=== PATIENT | female | born 1980 | race Caucasian/White ===

== ENCOUNTER 2019-06-26 11:25 | Emergency (ER) | payer MEDICAID ==
[2019-06-26] MEDS ORDERED: EPINEPHrine 1:10,000 1 MG/10 ML Syringe IM ONE (11:29)
[2019-06-26] MEDS ORDERED: EPINEPHrine 1 MG/1 ML Amp IM ONE (11:32)
[2019-06-26] MEDS ORDERED: methylPREDNISolone Sodium Succinate 40 MG/1 ML SDV ONE (11:36)
[2019-06-26] MEDS ORDERED: diphenhydrAMINE 50 MG/ML SDV ONE (11:36)
[2019-06-26] MEDS ORDERED: Sodium Chloride 0.9% 1,000 ML IV ONE (11:46)
[2019-06-26] MEDS ORDERED: diphenhydrAMINE 50 MG/ML SDV IVPUSH ONE (11:55)
[2019-06-26] MEDS ORDERED: methylPREDNISolone Sodium Succinate 40 MG/1 ML SDV IVPUSH ONE (11:55)
[2019-06-26 12:28] VITALS: BP 123/89; PULSE 103
--- NOTE | 2019-06-26 13:26 | EDM.PDOC ---
Scribed by Kendra Diaz 06/26/19 1325 for Yasmin Doyle NP ED HPI GENERAL MEDICAL PROBLEM - General Chief Complaint: Allergic Reaction Stated Complaint: STUNG BY BEE ALLERGIC Time Seen by Provider: 06/26/19 11:26 Source of Information: Reports: Patient, RN, RN Notes Reviewed History Limitations: Reports: No Limitations - History of Present Illness INITIAL COMMENTS - FREE TEXT/NARRATIVE: A 39-year-old female about half an hour ago was stung by a bee and used EpiPen. About 15 minutes ago; she still has feeling of shortness of breath and throat closing. She is anxious, shaky and dizzy. No rash, hives or itch. VSS Onset: Today Duration: Constant Location: Reports: Other (shortness of breath and throat closing) Quality: Reports: Ache Severity: Moderate Improves with: Reports: None Worsens with: Reports: None Associated Symptoms: Reports: No Other Symptoms - Related Data Allergies Allergy/AdvReac Type Severity Reaction Status Date / Time azithromycin [From Zithromax] Allergy Airway Verified 09/21/16 17:30 Tightness celecoxib [From Celebrex] Allergy Hives Verified 09/21/16 17:30 erythromycin base Allergy Cannot Verified 09/21/16 17:30 Remember meclizine Allergy Hives Verified 09/21/16 17:30 Home Meds: Home Meds FLUoxetine [PROzac] 20 mg PO DAILY 09/17/16 [History] Multivitamin [Multi-Vitamin Daily] 1 each PO DAILY 09/17/16 [History] Estrogens, Conjugated [Premarin] 1 tab PO DAILY 09/19/16 [History] Past Medical History HEENT History: Reports: Impaired Vision, Other (See Below) Other HEENT History: WEARS CORRECTIVE LENS - FREQUENTLY WEARS CONTACT LENS Cardiovascular History: Reports: Hypertension Respiratory History: Reports: SOB Gastrointestinal History: Reports: Chronic Diarrhea, Other (See Below) Other Gastrointestinal History: DARK STOOLS Genitourinary History: Reports: None LIFT SUPERVISOR History: Reports: , Other (See Below) Other LIFT SUPERVISOR History: cervical and uterine CA- hysterectomy; X3 PREGNANCIES 2 LIVING Musculoskeletal History: Reports: Arthritis Neurological History: Reports: None Psychiatric History: Reports: Anxiety, Depression, Suicide Attempt Endocrine/Metabolic History: Reports: Obesity/BMI 30+ Hematologic History: Reports: None Immunologic History: Reports: None Oncologic (Cancer) History: Reports: Cervix, Uterine Dermatologic History: Reports: None - Infectious Disease History Infectious Disease History: Reports: Chicken Pox - Past Surgical History Female Surgical History: Reports: Hysterectomy, Salpingo-Oophorectomy Musculoskeletal Surgical History: Reports: Other (See Below) Social & Family History - Family History Family Medical History: Noncontributory HEENT: Reports: Hearing Impairment, Impaired Vision Cardiac: Reports: CAD Respiratory: Reports: COPD GI: Reports: None : Reports: Renal Disease/Insufficiency OBGYN: Reports: None Musculoskeletal: Reports: Arthritis Neurological: Reports: None Psychiatric: Reports: None Endocrine/Metabolic: Reports: Diabetes, type II, Obesity/MBI 30+ Hematologic: Reports: None Immunologic: Reports: None Dermatologic: Reports: None Oncologic: Reports: Brain, Lung - Caffeine Use Caffeine Use: Reports: Soda Other Caffeine Use: RARELY - Living Situation & Occupation Occupation: Employed ED ROS ALLERGIC REACTION - Review of Systems Review Of Systems: ROS reveals no pertinent complaints other than HPI. Skin: Reports: No Symptoms ED EXAM GENERAL NO PERIP PULSE - Physical Exam Exam: See Below Exam Limited By: No Limitations General Appearance: Alert, WD/WN, No Apparent Distress Eye Exam: Bilateral Eye: Normal Inspection Ears: Other (small tiny left posterior ear bee sting with swelling at site. ) Nose: Normal Inspection, Normal Mucosa, No Blood Throat/Mouth: Normal Inspection, Normal Lips, Normal Teeth, Normal Gums, Normal Oropharynx, Normal Voice, No Airway Compromise Head: Atraumatic, Normocephalic Neck: Normal Inspection, Supple, Non-Tender, Full Range of Motion Respiratory/Chest: No Respiratory Distress, Lungs Clear, Normal Breath Sounds, No Accessory Muscle Use, Chest Non-Tender Cardiovascular: Normal Peripheral Pulses, Regular Rate, Rhythm, No Edema, No Gallop, No JVD, No Murmur, No Rub GI/Abdominal: Normal Bowel Sounds, Soft, Non-Tender, No Organomegaly, No Distention, No Abnormal Bruit, No Mass (Female) Exam: Deferred Rectal (Female) Exam: Deferred Back Exam: Normal Inspection, Full Range of Motion, NT Extremities: Normal Inspection, Normal Range of Motion, Non-Tender, Normal Capillary Refill, No Pedal Edema Neurological: Alert, Oriented, CN II-XII Intact, Normal Cognition, Normal Gait, Normal Reflexes, No Motor/Sensory Deficits Psychiatric: Normal Affect, Normal Mood Skin Exam: Warm, Dry, No Rash Course - Vital Signs Last Recorded V/S: Last Vital Signs Temp 36.8 C 06/26/19 11:45 Pulse 103 H 06/26/19 12:27 Resp 20 06/26/19 11:45 BP 123/89 06/26/19 12:27 Pulse Ox 97 06/26/19 12:27 - Orders/Labs/Meds Meds: Medications Discontinued Medications Generic Name Dose Route Start Last Admin Trade Name Ana PRN Reason Stop Dose Admin Diphenhydramine HCl Confirm 06/26/19 11:36 06/26/19 11:42 Benadryl Administered 06/26/19 11:37 50 mg Dose Administration 50 mg .ROUTE .STK-MED ONE Diphenhydramine HCl 50 mg 06/26/19 11:55 06/26/19 11:58 Benadryl IVPUSH 06/26/19 11:56 Not Given ONETIME ONE Epinephrine HCl 0.5 mg 06/26/19 11:29 06/26/19 11:47 Epinephrine 1:10,000 IM 06/26/19 11:30 Not Given ONETIME ONE Epinephrine HCl 0.5 mg 06/26/19 11:32 06/26/19 11:42 Adrenalin IM 06/26/19 11:33 0.5 mg ONETIME ONE Administration Sodium Chloride 1,000 mls @ 999 mls/hr 06/26/19 11:46 06/26/19 11:47 Normal Saline IV 06/26/19 12:46 999 mls/hr .BOLUS ONE Administration Methylprednisolone Sodium Succinate Confirm 06/26/19 11:36 06/26/19 11:42 Solu-Medrol Administered 06/26/19 11:37 80 mg Dose Administration 80 mg .ROUTE .STK-MED ONE Methylprednisolone Sodium Succinate 80 mg 06/26/19 11:55 06/26/19 11:59 Solu-Medrol IVPUSH 06/26/19 11:56 Not Given ONETIME ONE - Re-Assessments/Exams Free Text/Narrative Re-Assessment/Exam: 06/26/19 13:22 Improved 10 min after epi, Benadryl, solu-medrol was given. Observed 1.5 hours and remained stable. She felt comfortable with going home Departure - Departure Time of Disposition: 12:59 Disposition: Home, Self-Care 01 Condition: Good Clinical Impression: Bee sting-induced anaphylaxis Qualifiers: Encounter type: initial encounter Injury intent: accidental or unintentional Qualified Code(s): T63.441A - Toxic effect of venom of bees, accidental ( unintentional), initial encounter - Discharge Information *PRESCRIPTION DRUG MONITORING PROGRAM REVIEWED*: Not Applicable *COPY OF PRESCRIPTION DRUG MONITORING REPORT IN PATIENT [place]: Not Applicable Instructions: Anaphylactic Reaction, Adult, [id number] Referrals: PCP,None [Primary Care Provider] - Forms: ED Department Discharge Additional Instructions: Patient to return to ED if any return of symptoms with throat closure or shortness of breath. She is to take Benadryl 3 times a day for the next couple of days as well as Pepcid once in the morning and once at night. I have read and agree with the documentation that has been completed regarding this visit. By signing this record, I attest that the documentation was completed in my physical presence and is an accurate record of the encounter.
== END 2019-06-26 13:18 | disposition home or self-care (01) ==
LOC: DL.ED 11:25
DX: T63.441A Toxic effect of venom of bees, accidental (unintentional), initial encounter (principal); I10 Essential (primary) hypertension; F41.9 Anxiety disorder, unspecified; F32.9 Major depressive disorder, single episode, unspecified; E66.9 Obesity, unspecified; Z68.41 Body mass index [BMI] 40.0-44.9, adult; Z79.899 Other long term (current) drug therapy; Z88.1 Allergy status to other antibiotic agents; Z88.8 Allergy status to other drugs, medicaments and biological substances
CPT/HCPCS: 96361; 96372; 96374; 96375; 99284; J0171; J1200; J2920; J7030

== ENCOUNTER 2020-06-02 14:12 | Emergency (ER) | payer MEDICAID ==
[2020-06-02 14:24] VITALS: BP 130/76; PULSE 94
[2020-06-02 15:30] LABS: ANION GAP 11.6 mEq/L (7-13); CHLORIDE,CL 106 mmol/L (98-107); SODIUM,NA 145 mmol/L (136-145)
--- NOTE | 2020-06-02 16:27 | EDM.PDOC ---
ED HPI GENERAL MEDICAL PROBLEM - General Chief Complaint: Syncope Stated Complaint: Dizziness Time Seen by Provider: 06/02/20 15:40 Source of Information: Reports: Patient, RN History Limitations: Reports: No Limitations - History of Present Illness INITIAL COMMENTS - FREE TEXT/NARRATIVE: 40 year male who reports she was helping a friend at his home when she become dizzy and passed out about 10 -15 minutes before the ambulance got to the scene. She states she had not eaten all day and had a monster drink one hour before the incident. She reports some chest discomfort , nausea, and then dizziness prior to the incident. She states her chest pain is minimal. Nausea and dizziness has resolved. She states bystanders states she did not hit her head. Ambulance reports she was sitting up at the scene. She denies any SOB, palpitations,fevers/chills. jannette pain Pain Score (Numeric/FACES): 7 - Related Data Allergies Allergy/AdvReac Type Severity Reaction Status Date / Time azithromycin [From Zithromax] Allergy Airway Verified 06/02/20 14:19 Tightness celecoxib [From Celebrex] Allergy Hives Verified 06/02/20 14:19 erythromycin base Allergy Cannot Verified 06/02/20 14:19 Remember meclizine Allergy Hives Verified 06/02/20 14:19 Home Meds: Home Meds Multivitamin [Multi-Vitamin Daily] 1 each PO DAILY 09/17/16 [History] Past Medical History HEENT History: Reports: Impaired Vision, Other (See Below) Other HEENT History: WEARS CORRECTIVE LENS - FREQUENTLY WEARS CONTACT LENS Cardiovascular History: Reports: Hypertension Respiratory History: Reports: SOB Gastrointestinal History: Reports: Chronic Diarrhea, Other (See Below) Other Gastrointestinal History: DARK STOOLS Genitourinary History: Reports: None RESERVATION AGENT History: Reports: , Other (See Below) Other RESERVATION AGENT History: cervical and uterine CA- hysterectomy; X3 PREGNANCIES 2 LIVING Musculoskeletal History: Reports: Arthritis Neurological History: Reports: None Psychiatric History: Reports: Anxiety, Depression, Suicide Attempt Endocrine/Metabolic History: Reports: Obesity/BMI 30+ Hematologic History: Reports: None Immunologic History: Reports: None Oncologic (Cancer) History: Reports: Cervix, Uterine Dermatologic History: Reports: None - Infectious Disease History Infectious Disease History: Reports: Chicken Pox - Past Surgical History Female Surgical History: Reports: Hysterectomy, Salpingo-Oophorectomy Musculoskeletal Surgical History: Reports: Other (See Below) Social & Family History - Family History Family Medical History: Noncontributory HEENT: Reports: Hearing Impairment, Impaired Vision Cardiac: Reports: CAD Respiratory: Reports: COPD GI: Reports: None : Reports: Renal Disease/Insufficiency OBGYN: Reports: None Musculoskeletal: Reports: Arthritis Neurological: Reports: None Psychiatric: Reports: None Endocrine/Metabolic: Reports: Diabetes, type II, Obesity/MBI 30+ Hematologic: Reports: None Immunologic: Reports: None Dermatologic: Reports: None Oncologic: Reports: Brain, Lung - Tobacco Use Smoking Status *Q: Never Smoker Second Hand Smoke Exposure: No - Caffeine Use Caffeine Use: Reports: Energy Drinks Other Caffeine Use: RARELY Caffeine Use Comment: "not much use" - Recreational Drug Use Recreational Drug Use: No - Living Situation & Occupation Occupation: Employed ED ROS GENERAL - Review of Systems Review Of Systems: See Below Constitutional: Reports: No Symptoms HEENT: Reports: No Symptoms Respiratory: Reports: No Symptoms. Denies: Shortness of Breath, Wheezing Cardiovascular: Reports: Chest Pain (mild). Denies: Blood Pressure Problem, Dyspnea on Exertion, Lightheadedness, Palpitations Endocrine: Reports: No Symptoms GI/Abdominal: Reports: No Symptoms : Reports: No Symptoms Musculoskeletal: Reports: No Symptoms Skin: Reports: No Symptoms Neurological: Reports: No Symptoms Psychiatric: Reports: No Symptoms Hematologic/Lymphatic: Reports: No Symptoms Immunologic: Reports: No Symptoms ED EXAM, DIZZINESS - Physical Exam Exam: See Below Exam Limited By: No Limitations General Appearance: Alert, No Apparent Distress, Obese, Other (Unkempt) Ears: Normal External Exam, Normal Canal, Hearing Grossly Normal Nose: Normal Inspection, Normal Mucosa, No Blood Throat/Mouth: Normal Inspection, Normal Lips, Normal Oropharynx, Normal Voice, No Airway Compromise Head Exam: Atraumatic, Normocephalic Neck: Normal Inspection, Supple, Non-Tender, Full Range of Motion Respiratory/Chest: No Respiratory Distress, Lungs Clear, Normal Breath Sounds, No Accessory Muscle Use, Chest Non-Tender Cardiovascular: Normal Peripheral Pulses, Regular Rate, Rhythm, No Edema, No Gallop, No JVD, No Murmur, No Rub GI/Abdominal: Normal Bowel Sounds, Soft, Non-Tender, No Organomegaly, No Distention, No Abnormal Bruit, No Mass (Female) Exam: Deferred Rectal (Female) Exam: Deferred Neurological: Alert, Normal Mood/Affect, CN II-XII Intact, Normal Gait, No Motor/Sensory Deficits, Oriented x 3 Back Exam: Normal Inspection Extremities: Normal Inspection, Normal Range of Motion, Non-Tender, No Pedal Edema, Normal Capillary Refill, Other (ankle monitor on left leg) Psychiatric: Normal Affect, Normal Mood Skin Exam: Warm Course - Vital Signs Last Recorded V/S: Last Vital Signs Temp 98.2 F 06/02/20 14:23 Pulse 94 06/02/20 14:23 Resp 16 06/02/20 14:23 BP 130/76 06/02/20 14:23 Pulse Ox - Orders/Labs/Meds Orders: Active Orders 24 hr Category Date Time Status CULTURE URINE [RM] Stat Lab 06/02/20 15:53 Results Labs: Laboratory Tests 06/02/20 06/02/20 06/02/20 Range/Units 14:56 14:56 15:53 WBC 8.5 (5.0-10.0) 10^3/uL RBC 4.20 (4.2-5.4) 10^6/uL Hgb 12.0 (12.0-16.0) g/dL Hct 37.6 (37.0-47.0) % MCV 89.5 (80-100) fL MCH 28.6 (27.0-34.0) pg MCHC 31.9 L (33.0-35.0) g/dL Plt Count 219 (150-450) 10^3/uL Neut % (Auto) 77.0 H (42.2-75.2) % Lymph % (Auto) 16.6 L (20.5-50.1) % [place] % (Auto) 6.1 (2-8) % Eos % (Auto) 0.1 L (1.0-3.0) % Baso % (Auto) 0.2 (0.0-1.0) % Sodium 145 (136-145) mmol/L Potassium 4.6 (3.5-5.1) mmol/L Chloride 106 (98-107) mmol/L Carbon Dioxide 32 (21-32) mmol/L Anion Gap 11.6 (7-13) mEq/L BUN 13 (7-18) mg/dL Creatinine 0.94 (0.55-1.02) mg/dL Est Cr Clr Drug Dosing 80.25 mL/min Estimated GFR (MDRD) > 60 BUN/Creatinine Ratio 13.8 (No establ ref range) Glucose 107 H (74-99) mg/dL Calcium 8.8 (8.5-10.1) mg/dL Total Bilirubin 0.3 (0.2-1.0) mg/dL AST 91 H (15-37) U/L ALT 88 H (14-59) U/L Alkaline Phosphatase 70 (46-116) U/L Troponin I < 0.017 (0.000-0.056) ng/mL Total Protein 6.9 (6.4-8.2) g/dL Albumin 3.4 (3.4-5.0) g/dL Globulin 3.5 Albumin/Globulin Ratio 1.0 TSH, Ultra Sensitive 1.65 (0.36-3.74) uIU/mL Urine Color Yellow (YELLOW) Urine Appearance Cloudy (CLEAR) Urine pH 7.0 (5.0-9.0) Ur Specific [place] 1.025 (1.005-1.030) Urine Protein 30 H (NEGATIVE) Urine Glucose (UA) Negative (NEGATIVE) Urine Ketones Negative (NEGATIVE) Urine Occult Blood Trace-intact H (NEGATIVE) Urine Nitrite Negative (NEGATIVE) Urine Bilirubin Negative (NEGATIVE) Urine Urobilinogen 1.0 (0.2-1.0) mg/dL Ur Leukocyte Esterase Large H (NEGATIVE) Urine RBC 0-5 /HPF Urine WBC 30-40 H (0-5/HPF) /HPF Ur Epithelial Cells Many H (NOT SEEN) /HPF Amorphous Sediment Moderate H (NOT SEEN) /HPF Urine Bacteria Many H (0-FEW/HPF) /HPF Urine Mucus Few H (NOT SEEN) /LPF Urine Opiates Screen (NEGATIVE) Ur Oxycodone Screen (NEGATIVE) Urine Methadone Screen (NEGATIVE) Ur Barbiturates Screen (NEGATIVE) U Tricyclic Antidepress (NEGATIVE) Ur Phencyclidine Scrn (NEGATIVE) Ur Amphetamine Screen (NEGATIVE) U Methamphetamines Scrn (NEGATIVE) Urine MDMA Screen (NEGATIVE) U Benzodiazepines Scrn (NEGATIVE) Urine Cocaine Screen (NEGATIVE) U Marijuana (THC) Screen (NEGATIVE) 06/02/20 Range/Units 15:53 WBC (5.0-10.0) 10^3/uL RBC (4.2-5.4) 10^6/uL Hgb (12.0-16.0) g/dL Hct (37.0-47.0) % MCV (80-100) fL MCH (27.0-34.0) pg MCHC (33.0-35.0) g/dL Plt Count (150-450) 10^3/uL Neut % (Auto) (42.2-75.2) % Lymph % (Auto) (20.5-50.1) % [place] % (Auto) (2-8) % Eos % (Auto) (1.0-3.0) % Baso % (Auto) (0.0-1.0) % Sodium (136-145) mmol/L Potassium (3.5-5.1) mmol/L Chloride (98-107) mmol/L Carbon Dioxide (21-32) mmol/L Anion Gap (7-13) mEq/L BUN (7-18) mg/dL Creatinine (0.55-1.02) mg/dL Est Cr Clr Drug Dosing mL/min Estimated GFR (MDRD) BUN/Creatinine Ratio (No establ ref range) Glucose (74-99) mg/dL Calcium (8.5-10.1) mg/dL Total Bilirubin (0.2-1.0) mg/dL AST (15-37) U/L ALT (14-59) U/L Alkaline Phosphatase (46-116) U/L Troponin I (0.000-0.056) ng/mL Total Protein (6.4-8.2) g/dL Albumin (3.4-5.0) g/dL Globulin Albumin/Globulin Ratio TSH, Ultra Sensitive (0.36-3.74) uIU/mL Urine Color (YELLOW) Urine Appearance (CLEAR) Urine pH (5.0-9.0) Ur Specific [place] (1.005-1.030) Urine Protein (NEGATIVE) Urine Glucose (UA) (NEGATIVE) Urine Ketones (NEGATIVE) Urine Occult Blood (NEGATIVE) Urine Nitrite (NEGATIVE) Urine Bilirubin (NEGATIVE) Urine Urobilinogen (0.2-1.0) mg/dL Ur Leukocyte Esterase (NEGATIVE) Urine RBC /HPF Urine WBC (0-5/HPF) /HPF Ur Epithelial Cells (NOT SEEN) /HPF Amorphous Sediment (NOT SEEN) /HPF Urine Bacteria (0-FEW/HPF) /HPF Urine Mucus (NOT SEEN) /LPF Urine Opiates Screen Negative (NEGATIVE) Ur Oxycodone Screen Negative (NEGATIVE) Urine Methadone Screen Negative (NEGATIVE) Ur Barbiturates Screen Negative (NEGATIVE) U Tricyclic Antidepress Negative (NEGATIVE) Ur Phencyclidine Scrn Negative (NEGATIVE) Ur Amphetamine Screen Negative (NEGATIVE) U Methamphetamines Scrn Negative (NEGATIVE) Urine MDMA Screen Negative (NEGATIVE) U Benzodiazepines Scrn Negative (NEGATIVE) Urine Cocaine Screen Negative (NEGATIVE) U Marijuana (THC) Screen Negative (NEGATIVE) - Re-Assessments/Exams Free Text/Narrative Re-Assessment/Exam: Reviewed Exam findings with patient. EKG showed ST @ 100. Troponin negative. CMP showed elevated LFT and UA positive for UTI. RX for Keflex given to patient. Follow up with PCP next week for LFT recheck. Departure - Departure Time of Disposition: 16:15 Disposition: Home, Self-Care 01 Preliminary Cause of *Q: Cardiac Arrest Condition: Good Clinical Impression: Atypical chest pain Syncope Qualifiers: Syncope type: unspecified Qualified Code(s): R55 - Syncope and collapse UTI (urinary tract infection) Qualifiers: Urinary tract infection type: acute cystitis Hematuria presence: without hematuria Qualified Code(s): N30.00 - Acute cystitis without hematuria - Discharge Information Instructions: Nonspecific Chest Pain, Adult, Syncope, [id number] Forms: ED Department Discharge Additional Instructions: Follow up with PCP in the clinic. Sepsis Event Note (ED) - Evaluation Sepsis Screening Result: No Definite Risk - My Orders Last 24 Hours: My Active Orders 06/02/20 15:53 CULTURE URINE [RM] Stat - Assessment/Plan Last 24 Hours: My Active Orders 06/02/20 15:53 CULTURE URINE [RM] Stat
== END 2020-06-02 16:38 | disposition home or self-care (01) ==
LOC: DL.ED 14:12
DX: N30.00 Acute cystitis without hematuria (principal); R55 Syncope and collapse; R07.89 Other chest pain; I10 Essential (primary) hypertension; E66.9 Obesity, unspecified; Z68.41 Body mass index [BMI] 40.0-44.9, adult; Z88.1 Allergy status to other antibiotic agents; Z88.8 Allergy status to other drugs, medicaments and biological substances
CPT/HCPCS: 36415; 80053; 80305-QW; 81001; 84443; 84484; 85025; 87086; 87088; 87186; 93005; 93010; 99283; 99285-25

== ENCOUNTER → 2020-08-15 | Day surgery (SDC) | payer MEDICAID ==
[~2020-08-15] MED LIST: Dextrose 5%-0.45% NaCl 1,000 ML IV SCH; Midazolam 1 MG/ML 2 ML SDV IV ONE; Midazolam 1 MG/ML 2 ML SDV ONE; Sodium Chloride 0.9% 10 ML Syringe FLUSH PRN; fentaNYL 100 MCG/2 ML SDV IV ONE; fentaNYL 100 MCG/2 ML SDV ONE
--- NOTE | 2020-08-15 08:34 | OR ---
DATE: 08/15/2020 PROCEDURES: 1. Esophagogastroduodenoscopy. 2. Multiple pinch biopsies. INSTRUMENT USED: [id number]-HQ190 Olympus video panendoscope. PREMEDICATIONS: No oral or topical anesthesia was used. Fentanyl 100 mcg intravenous, Versed 2 mg intravenous, and nasal O2 cannula. The procedure was done under pulse oximetry, BP recording, and cardiac surgeon. INDICATION: The patient with persistent longstanding abdominal pain and diarrhea unexplained and not responsive to medical measures. Esophagogastroduodenoscopy is performed for detection of any active erosive lesions, Cooper esophagus and/or malignancy are also under consideration, H pylori status is to be determined, small bowel biopsies are to be obtained for celiac disease, and endoscopic hemostasis therapy if needed. DESCRIPTION OF PROCEDURE: The scope was passed with ease. Adequate visualization of the esophagus was made from [id number] areas. No upper esophageal lesions were identified. No distal esophageal stricture. No uphill or downhill esophageal varices. No Nevaeh-Ayala tear. No evidence of erosive esophagitis by [place] criteria. No esophageal polyp or tumor mass was identified. Z-line was seen at around 40 cm distal to the oral verge, configuration consistent with grade 1 by ZAP classification. No proximal gastric varices were noted. Gastric fundus examination by retroflexion showed no polypoid lesions. No gastric ulcer, malignant mass, or vascular ectasia was identified. The duodenal bulb showed no ulcer. The visualized second part of the duodenum was unremarkable. Multiple pinch biopsies, 4 in number, were taken from different areas of the second part of the duodenum. Tissues were also obtained from the duodenal bulb at 9 and 12 o'clock positions and sent for any evidence of celiac disease. Multiple pinch biopsies were also obtained from the gastric antrum and proximal body and sent for PyloriTek test for H pylori histopathology. No bleeding was noted from any of the visualized areas at the completion of the examination. Photographs were taken of the duodenal bulb, gastric antrum, fundus, and distal esophagus. IMPRESSION: Normal study. The patient tolerated the procedure well. [facility] /[id number]
[2020-08-15 09:38] VITALS: PULSE 86
[2020-08-15 10:59] VITALS: BP 133/90
== END | disposition home or self-care (01) ==
LOC: DL.ENDO 06:43
PROVIDERS: ATTEND Internal Medicine Gastroenterology
DX: I78.1 Nevus, non-neoplastic (principal); F41.1 Generalized anxiety disorder; Z87.11 Personal history of peptic ulcer disease; E66.01 Morbid (severe) obesity due to excess calories; Z98.890 Other specified postprocedural states; Z88.1 Allergy status to other antibiotic agents; Z88.8 Allergy status to other drugs, medicaments and biological substances; Z68.41 Body mass index [BMI] 40.0-44.9, adult
CPT/HCPCS: 43239; 87077; J2250; J3010; J7042

== ENCOUNTER 2020-08-24 06:36 | Day surgery (SDC) | payer MEDICAID ==
[~2020-08-24 06:36] MED LIST changes: -Midazolam 1 MG/ML 2 ML SDV IV ONE; -Sodium Chloride 0.9% 10 ML Syringe FLUSH PRN; -fentaNYL 100 MCG/2 ML SDV IV ONE
[2020-08-24] MEDS ORDERED: Midazolam 1 MG/ML 2 ML SDV IV ONE ×7 (06:37→08:14)
[2020-08-24] MEDS ORDERED: fentaNYL 100 MCG/2 ML SDV IV ONE ×7 (06:37→08:20)
[2020-08-24 10:39] VITALS: BP 120/69; PULSE 80
--- NOTE | 2020-08-24 16:13 | OR ---
DATE: 08/24/2020 PROCEDURE: Total colonoscopy and multiple pinch biopsies. INSTRUMENT USED: [id number]-[id number] Olympus video colonoscope. PREMEDICATIONS: Fentanyl 200 mcg intravenous, Versed 4 mg intravenous. Nasal O2 cannula. The procedure was done under pulse oximetry, BP recording, and panel monitor. INDICATION: The patient with longstanding intermittent diarrhea and abdominal pain, unexplained and not responsive to medical measures. Colonoscopic examination is done for detection of any polypoid lesions and removal, biopsies to be obtained for microscopic colitis, endoscopic hemostasis therapy if needed. DESCRIPTION OF PROCEDURE: Initial rectal exam was unremarkable. Rigid anoscopy was normal. The colonoscope was passed with ease. Scattered diverticula were noted in the distal left colon along with deformity. The scope was passed with ease up to the ileocecal area. Photographs were taken of the cecum, identified by appendiceal orifice and thin-lipped ileocecal junction, preventing further advancement to visualize terminal ileum. No bleeding was noted from any of the visualized areas at the commencement of the examination. Bowel preparation was inadequate, large amounts of fecal material noted that had to be aspirated, [place] scale 1 in all the regions, total score 3. No stricture. No vascular ectasia. No large isolated ulcerations seen. No evidence of diffuse inflammatory bowel disease in the form of friability, contact bleeding, or ulcerations. No polyp or tumor mass identified. Probing the proximal sides of folds and flexures using adequate distention and clearing up the stool material, withdrawal of the scope was made. No bleeding was noted from any of the visualized areas at the completion of the examination. Multiple pinch biopsies were obtained from the normal-appearing mucosa of the mid transverse colon, mid descending colon, and rectosigmoid, and sent for any histopathologic evidence of microscopic colitis. IMPRESSION: Diverticulosis. The patient tolerated the procedure well. [facility] /[id number]
== END 2020-08-24 10:30 | disposition home or self-care (01) ==
LOC: DL.ENDO 06:36
PROVIDERS: ATTEND Internal Medicine Gastroenterology
DX: D72.820 Lymphocytosis (symptomatic) (principal); K57.30 Diverticulosis of large intestine without perforation or abscess without bleeding; E66.01 Morbid (severe) obesity due to excess calories; F41.1 Generalized anxiety disorder; Z98.890 Other specified postprocedural states; Z88.8 Allergy status to other drugs, medicaments and biological substances; Z88.1 Allergy status to other antibiotic agents; Z87.19 Personal history of other diseases of the digestive system; Z68.39 Body mass index [BMI] 39.0-39.9, adult
CPT/HCPCS: 45380; J2250; J3010; J7042

== ENCOUNTER 2020-11-24 22:24 | Emergency (ER) | payer MEDICAID ==
[2020-11-24 22:33] VITALS: BP 144/80; PULSE 109
--- NOTE | 2020-11-24 22:46 | EDM.PDOC ---
ED HPI GENERAL MEDICAL PROBLEM - General Chief Complaint: Lower Extremity Injury/Pain Stated Complaint: RIGHT ANKLE INJURED Time Seen by Provider: 11/24/20 22:35 Source of Information: Reports: Patient History Limitations: Reports: No Limitations - History of Present Illness INITIAL COMMENTS - FREE TEXT/NARRATIVE: ED with c/o pain to right ankle, slipped and fell on ice earlier this jessica, Difficulty with weight bearing and moving ankle Right Ankle Pain Score (Numeric/FACES): 10 - Related Data Allergies Allergy/AdvReac Type Severity Reaction Status Date / Time azithromycin [From Zithromax] Allergy Airway Verified 11/24/20 22:31 Tightness celecoxib [From Celebrex] Allergy Hives Verified 11/24/20 22:31 bees Allergy Airway Uncoded 11/24/20 22:31 Tightness Home Meds: Home Meds Multivitamin [Multi-Vitamin Daily] 1 each PO DAILY 09/17/16 [History] EPINEPHrine [Epinephrine] 0.3 ml SQ ASDIRECTED PRN 08/14/20 [History] Past Medical History HEENT History: Reports: Impaired Vision, Other (See Below) Other HEENT History: WEARS CORRECTIVE LENS - FREQUENTLY WEARS CONTACT LENS Cardiovascular History: Reports: Hypertension Respiratory History: Reports: SOB Gastrointestinal History: Reports: Chronic Diarrhea, GERD, Helicobacter Pylori, PUD, Other (See Below) Other Gastrointestinal History: DARK STOOLS Genitourinary History: Reports: None CAREER ADVISOR History: Reports: , Spontaneous , Other (See Below) Other CAREER ADVISOR History: cervical and uterine CA- hysterectomy; X3 PREGNANCIES 2 LIVING Musculoskeletal History: Reports: Arthritis Neurological History: Reports: None Psychiatric History: Reports: Anxiety, Depression, Suicide Attempt Endocrine/Metabolic History: Reports: Obesity/BMI 30+ Hematologic History: Reports: None Immunologic History: Reports: None Oncologic (Cancer) History: Reports: Cervix, Uterine Dermatologic History: Reports: None, Other (See Below) - Infectious Disease History Infectious Disease History: Reports: Chicken Pox, Helicobacter Pylori - Past Surgical History Head Surgeries/Procedures: Reports: None HEENT Surgical History: Reports: None Cardiovascular Surgical History: Reports: None Respiratory Surgical History: Reports: None GI Surgical History: Reports: Colonoscopy, EGD Other GI Surgeries/Procedures: had EGD , found ulcer and hpylori Female Surgical History: Reports: D&C, Hysterectomy, LEEP, Salpingo- Oophorectomy Endocrine Surgical History: Reports: None Neurological Surgical History: Reports: None Musculoskeletal Surgical History: Reports: Arthroscopic Knee, Other (See Below) Other Musculoskeletal Surgeries/Procedures:: RIGHT knee surgery Oncologic Surgical History: Reports: None Social & Family History - Family History Family Medical History: No Pertinent Family History HEENT: Reports: Hearing Impairment, Impaired Vision Cardiac: Reports: CAD Respiratory: Reports: COPD GI: Reports: None : Reports: Renal Disease/Insufficiency OBGYN: Reports: None Musculoskeletal: Reports: Arthritis Neurological: Reports: None Psychiatric: Reports: None Endocrine/Metabolic: Reports: Diabetes, type II, Obesity/MBI 30+ Hematologic: Reports: None Immunologic: Reports: None Dermatologic: Reports: None Oncologic: Reports: Brain, Lung - Tobacco Use Tobacco Use Status *Q: Never Tobacco User Second Hand Smoke Exposure: No - Caffeine Use Caffeine Use: Reports: Coffee, Energy Drinks, Soda Other Caffeine Use: RARELY Caffeine Use Comment: "not much use" - Recreational Drug Use Recreational Drug Use: No - Living Situation & Occupation Occupation: Employed Review of Systems - Review of Systems Review Of Systems: Comprehensive ROS is negative, except as noted in HPI. ED EXAM, GENERAL - Physical Exam Exam: See Below Exam Limited By: No Limitations General Appearance: Alert, Mild Distress Ears: Normal External Exam, Hearing Grossly Normal Respiratory/Chest: No Respiratory Distress Cardiovascular: Normal Peripheral Pulses, Regular Rate, Rhythm Extremities: Joint Swelling (mild right lateral ankle), Limited Range of Motion. No: Normal Range of Motion Neurological: Alert, Oriented Psychiatric: Normal Affect Skin Exam: Warm, Dry, Intact Course - Vital Signs Last Recorded V/S: Last Vital Signs Temp 95.9 F L 11/24/20 22:27 Pulse 109 H 11/24/20 22:27 Resp 18 11/24/20 22:27 BP 144/80 H 11/24/20 22:27 Pulse Ox 100 11/24/20 22:27 Departure - Departure Time of Disposition: 23:15 Disposition: Home, Self-Care 01 Condition: Good Clinical Impression: Right ankle sprain - Discharge Information *PRESCRIPTION DRUG MONITORING PROGRAM REVIEWED*: No *COPY OF PRESCRIPTION DRUG MONITORING REPORT IN PATIENT KING: No Instructions: Ankle Sprain, [id number] Forms: ED Department Discharge Additional Instructions: ice elevate jinny crutches, weight bearing as tolerated tylenol 650mg every 4 hours as needed for discomfort. not to exceed 3000mg in 24 hours Sepsis Event Note (ED) - Evaluation Sepsis Screening Result: No Definite Risk - Focused Exam Vital Signs: Vital Signs Temp Pulse Resp BP Pulse Ox 11/24/20 22:27 95.9 F L 109 H 18 144/80 H 100
--- NOTE | 2020-11-24 23:11 | CR ---
PROCEDURE INFORMATION: Exam: XR Right Ankle Exam date and time: 11/24/2020 10:52 PM Age: 40 years old Clinical indication: Other: Fall/pain; Additional info: Pain, fall TECHNIQUE: Imaging protocol: XR Right ankle. Views: 3 or more views. COMPARISON: No relevant prior studies available. FINDINGS: Bones/joints: There is a tiny chronic osseous fragment inferior to the lateral malleolus. No acutely displaced fracture or dislocation. No aggressive osseous lesions. Small plantar calcaneal spur. Soft tissues: Diffuse and severe soft tissue swelling noted throughout the ankle. IMPRESSION: Diffuse soft tissue swelling.
== END 2020-11-24 23:25 | disposition home or self-care (01) ==
LOC: DL.ED 22:24
DX: S93.401A Sprain of unspecified ligament of right ankle, initial encounter (principal); I10 Essential (primary) hypertension; E66.9 Obesity, unspecified; Z68.41 Body mass index [BMI] 40.0-44.9, adult; Z88.1 Allergy status to other antibiotic agents; Z88.8 Allergy status to other drugs, medicaments and biological substances; Z91.030 Bee allergy status; W00.0XXA Fall on same level due to ice and snow, initial encounter
CPT/HCPCS: 73610-RT; 99282; 99283

== ENCOUNTER 2021-03-06 05:54 | Day surgery (SDC) | payer MEDICAID ==
[~2021-03-06 05:54] MED LIST changes: -Dextrose 5%-0.45% NaCl 1,000 ML IV SCH
[2021-03-06] MEDS ORDERED: Midazolam 1 MG/ML 2 ML SDV IV ONE ×7 (05:55→07:05)
[2021-03-06] MEDS ORDERED: fentaNYL 100 MCG/2 ML SDV IV ONE ×7 (05:55→07:09)
[2021-03-06] MEDS ORDERED: Sodium Chloride 0.9% 10 ML Syringe FLUSH PRN (06:00)
[2021-03-06] MEDS ORDERED: Dextrose 5%-0.45% NaCl 1,000 ML IV SCH (06:00)
[2021-03-06 08:51] VITALS: BP 132/90; PULSE 89
--- NOTE | 2021-03-06 13:52 | OR ---
DATE: 03/06/2021 PROCEDURE: Total colonoscopy. INSTRUMENT USED: PCF-H190DL Olympus video colonoscope. PREMEDICATIONS: Fentanyl 200 mcg intravenous, Versed 4 mg intravenous, nasal O2 cannula. The procedure was done under pulse oximetry, BP recording, and teletypesetter monitor. INDICATION: The patient with intermittent diarrhea and abdominal pain, unexplained and not responsive to medical measures. Previously inadequate study due to the presence of large amount of fecal material. Colonoscopic examination is done for detection of any polypoid lesions and removal, endoscopic hemostasis therapy if needed. DESCRIPTION OF PROCEDURE: Initial rectal exam was unremarkable. Rigid anoscopy was normal. The colonoscope was passed with ease up to the ileocecal area. Photographs were taken of the normal-appearing cecum identified by landmarks of appendiceal orifice and double-bulged ileocecal folds. No bleeding was noted from any of the visualized areas at the commencement of the examination. The bowel preparation was found to be adequate, [place] scale 2 in all the regions, total score 6. No stricture. No vascular ectasia. No large isolated ulcerations seen. No evidence of diffuse inflammatory bowel disease in the form of friability, contact bleeding, or ulcerations. No polyp or tumor mass identified. Probing the proximal sides of folds and flexures using adequate distention and clearing up the stool material, withdrawal of the scope was made, cecum to rectum time over 6 minutes. No bleeding was noted from any of the visualized areas at the completion of examination. IMPRESSION: Normal study. The patient tolerated the procedure well. [facility] /[id number]
== END 2021-03-06 08:53 | disposition home or self-care (01) ==
LOC: DL.ENDO 05:54
PROVIDERS: ATTEND Internal Medicine Gastroenterology
DX: R19.7 Diarrhea, unspecified (principal); R10.9 Unspecified abdominal pain; E66.09 Other obesity due to excess calories; G47.33 Obstructive sleep apnea (adult) (pediatric); K21.9 Gastro-esophageal reflux disease without esophagitis; Z98.890 Other specified postprocedural states; Z88.8 Allergy status to other drugs, medicaments and biological substances; Z88.1 Allergy status to other antibiotic agents; Z68.41 Body mass index [BMI] 40.0-44.9, adult
CPT/HCPCS: J2250; J3010; J7042

== ENCOUNTER 2024-11-27 22:16 | Emergency (ER) | payer SELFPAY ==
[2024-11-27 23:07] LABS: BASOPHILS PERCENT AUTO 0.6 % (0.0-1.0); EOSINOPHILS PERCENT AUTO 0.7 % (1.0-3.0); HEMATOCRIT 40.1 % (37.0-47.0); HEMOGLOBIN 12.6 g/dL (12.0-16.0); LYMPHOCYTES PERCENT AUTO 25.5 % (20.5-50.1); MEAN CORPUSCULAR HEMOGLOBIN 28.5 pg (27.0-34.0); MEAN CORPUSCULAR HGB CONC 31.4 g/dL (33.0-35.0); MEAN CORPUSCULAR VOLUME 90.7 fL (80-100); MONOCYTES PERCENT AUTO 9.3 % (2-8); NEUTROPHILS PERCENT AUTO 63.9 % (42.2-75.2); PLATELET COUNT,PLT 234 10^3/uL (150-450); RED BLOOD CELL COUNT 4.42 10^6/uL (4.2-5.4); WHITE BLOOD CELL COUNT,WBC 8.9 10^3/uL (5.0-10.0)
[2024-11-27 23:18] LABS: A/G RATIO 0.91; ALANINE AMINOTRANSFERASE,ALT 31 U/L (14-59); ALBUMIN 3.2 g/dL (3.4-5.0); ALKALINE PHOSPHATASE 69 U/L (46-116); ANION GAP 11.2 mEq/L (7-13); ASPARTATE AMNIOTRANSFERASE,AST 14 U/L (15-37); BILIRUBIN TOTAL 0.2 mg/dL (0.2-1.0); BLOOD UREA NITROGEN,BUN 16 mg/dL (7-18); BUN/CREATININE RATIO 16.8 (No establ ref range); CALCIUM 9.3 mg/dL (8.5-10.1); CARBON DIOXIDE,CO2 29 mmol/L (21-32); CHLORIDE,CL 107 mmol/L (98-107); CREATININE 0.95 mg/dL (0.55-1.02); ESTIMATED GFR 76 mL/min (>=60); GLUCOSE RANDOM 109 mg/dL (70-99); POTASSIUM,K 4.2 mmol/L (3.5-5.1); PROTEIN TOTAL,TP 6.7 g/dL (6.4-8.2); SODIUM,NA 143 mmol/L (136-145)
[2024-11-27] MEDS: Iopamidol 755 Mg/ML 100 ML Bottle IVPUSH ONE (23:29)
[2024-11-28 00:21] VITALS: PULSE 81
[2024-11-28 00:24] VITALS: BP 118/64
== END 2024-11-28 00:16 | disposition left against medical advice (07) ==
LOC: DL.ED 22:16
DX: R53.1 Weakness (principal); R20.0 Anesthesia of skin; I10 Essential (primary) hypertension; I25.2 Old myocardial infarction; Z88.1 Allergy status to other antibiotic agents; Z91.030 Bee allergy status; Z79.899 Other long term (current) drug therapy; Z90.710 Acquired absence of both cervix and uterus
CPT/HCPCS: 36415; 70450; 70496; 70498; 71045; 80053; 84484; 85025; 93005; 99285; Q9967